=== PATIENT | female | born 1995 | race Caucasian/White ===

== ENCOUNTER → 2023-12-20 08:46 | Outpatient (REF) | payer BC, SELFPAY | LOC: HWRAD 08:46 | PROVIDERS: ATTENDING PHYSICIAN Nurse Practitioner Family | DX: E06.3 Autoimmune thyroiditis (principal) | CPT/HCPCS: 76536 ==

== ENCOUNTER 2025-06-14 01:09 | Day surgery (SDC) | payer BC, SELFPAY ==
[2025-06-13 21:02] VITALS: BMI 28.0
[2025-06-13 21:04] VITALS: BP 109/70
--- NOTE | 2025-06-13 21:49 | ED.GENMED ---
History of Present Illness
General
Chief Complaint: Abdominal Pain
Source: patient
Exam Limitations: none
Time Seen by Provider: 06/13/25 21:39
History of Present Illness
History of Present Illness:
30-year-old female otherwise healthy presents complaining of right lower abdominal pain getting worse since 1 PM this afternoon. There was no associated nausea vomiting or diarrhea. No fevers but does note some chills. Prior surgical history of
cholecystectomy. She was on Wegovy but stopped this about a month ago. Last menstrual cycle was 3-1/2 weeks ago. No prior history of kidney stones or ovarian cyst. If anything since waiting in the waiting her pain is slightly improved.
Past History
Past History
ED Past Medical History: Asthma
ED Past Surgical History: Other (Oral surgery)
Social History
Tobacco: Non-smoker
Phy Exam
Physical Exam
Physical Exam:
General: Well-appearing female no acute respiratory distress HEENT: Normocephalic atraumatic
Heart: Regular rate and rhythm lungs: Clear no wheeze
Abdomen is soft tender to the right lower quadrant no guarding no rebound nondistended
Extremities: No cyanosis or edema
Course
Orders/Labs/Results
Orders:
Orders
06/13/25 21:46
Test Result ONCE
06/13/25 21:47
CT Abd/pelvis W Iv Cont Urgent
Comment:
Reason For Exam: rlq pain
06/13/25 21:54
Complete Blood Count/With Diff Urgent
Comprehensive Metabolic Panel Urgent
HCG, Serum Qualitative Screen Urgent
Lipase Urgent
Urinalysis Reflex To Culture Urgent
Date Specimen was Collected: 06/13/25
Time Specimen was Collected: 21:51
06/13/25 22:58
Ketorolac [Toradol] 15 mg IV NOW STA
Abnormal Lab Results
06/13/25
21:54
WBC 14.5 H 10^3/uL
(4.8-10.8)
Hct 36.7 L %
(37.0-47.0)
MCHC 32.7 L g/dL
(33.0-37.0)
Abs Immat Gran (auto) 0.1 H 10^3/uL
(0-0.05)
Absolute Neuts (auto) 11.2 H 10^3/uL
(1.4-6.5)
Absolute Monos (auto) 0.9 H 10^3/uL
(0.1-0.6)
Neutrophils % 77.5 H %
(42.2-75.2)
Lymphocytes % 15.6 L %
(20.5-51.1)
Creatinine 0.5 L mg/dL
(0.6-1.0)
Glucose 112 H mg/dl
(70-99)
06/13/25 21:54
06/13/25 21:54
Vital Signs
Initial and Last Documented VS:
Initial Vital Signs
Temp Pulse Resp BP Pulse Ox
98.9 F 101 16 109/70 98
06/13/25 21:04 06/13/25 21:04 06/13/25 21:04 06/13/25 21:04 06/13/25 21:04
Last Documented Vital Signs
Temp Pulse Resp BP Pulse Ox
99.3 F 67 16 107/61 99
06/14/25 00:00 06/14/25 00:00 06/14/25 00:00 06/14/25 00:00 06/14/25 00:00
MDM/Problems Addressed
Differential Diagnosis Includes:
Right lower abdominal pain. Consider constipation versus appendicitis versus renal colic versus UTI versus ovarian related pathology
Check urine, test, labs and CT
*Pulse Oximetry
SaO2: 98
Oxygen Mode of Delivery: Room air
Patient hypoxic: no
*Critical Care Note
Total Time (30-74mins, 75-104mins- exclusive of procedures): Not Applicable
Update Note
Update Note:
This white blood cell count elevated at 14.5. CT consistent with acute appendicitis with an appendix measuring 11 mm without evidence of rupture or abscess. Discussed with general surgery who agreed to keep the patient on their service. House
doctor to admit Toradol was ordered for pain
ED Attending Note
-
Portions of this chart may have been created with voice recognition software.� Occasional wrong word or��sound alike� substitutions may have occurred due to the inherent limitations of voice recognition software.
Discharge Plan
Departure
Patient Disposition: Admit
Date of Disposition: 06/14/25
Time of Disposition: 00:13
Presentation/result/management discussed w/ accepting MD/DO: Nigel
Discharge Problem:
Acute appendicitis
Prescriptions:
No Action
kmjowxsi-gji-Gt-FA 1 mg Tablet
1 tab PO DAILY
ibuprofen 600 mg Tablet
600 mg PO Q6HPRN PRN (Reason: moderate pain/cramps) Qty: 0 0RF
acetaminophen 325 mg Tablet
650 mg PO Q4HPRN PRN (Reason: mild pain) Qty: 0 0RF
oxycodone 5 mg tablet
5 mg PO Q4H PRN (Reason: pain) Qty: 10 0RF
ondansetron 8 mg tablet,disintegrating
8 mg PO TID PRN (Reason: nausea and vomiting) Qty: 30 0RF
Referrals:
Rashida Dudley CRNP [Family Provider, Family Practice]
Interventions
Interventions:
*Risk Screen - Suicide Last Done: 06/13/25 21:04
*General Assessment Last Done: 06/13/25 21:04
*Neglect/Abuse Screening Last Done: 06/13/25 21:04
*ED- Fall Risk Assessment Last Done: 06/13/25 21:59
YD-Hezxoo-Upckflzyhq Assessment Last Done: 06/13/25 21:59
Discharge Date and Time
Print Language: INDIAN
[2025-06-13 22:00] VITALS: BP 114/78
[2025-06-13 22:10] LABS: Urine Character Clear (Clear)
[2025-06-13 22:12] LABS: Hematocrit 36.7 % (37.0-47.0); Hemoglobin 12.0 g/dL (12.0-16.0); Mean Corp Hgb Conc. 32.7 g/dL (33.0-37.0); Mean Corpuscular Volume 85.7 fL (81.0-99.0); Nucleated Red Blood Cells % 0 %; Platelet Count 240 10^3/uL (130-400); Red Cell Dist. Width 13.1 % (11.5-14.5)
[2025-06-13 22:24] LABS: HCG, Serum Qualitative Screen Negative
[2025-06-13 22:30] LABS: ALT (SGPT) 19 U/L (0-35); AST (SGOT) 21 U/L (14-36); Albumin 4.2 g/dl (3.5-5.0); Alkaline Phosphatase 55 U/L (38-126); Blood Urea Nitrogen 10 mg/dl (7-17); Calcium 9.3 mg/dl (8.4-10.2); Carbon Dioxide 26 mmol/L (22-30); Chloride 103 mmol/L (98-107); Estimated Creatinine Clearance > 125 ml/min; Glucose 112 mg/dl (70-99); Lipase 85 U/L (23-300); Potassium 4.0 mmol/L (3.5-5.1); Sodium 135 mmol/L (135-145); Total Protein 7.4 g/dl (6.3-8.2); eGFR > 60.00
[2025-06-13] MEDS: TORADOL 15 MG IV (23:00)
[2025-06-14] VITALS (15 sets, daily range): BP systolic 91–107; BP diastolic 45–61
[2025-06-14] MEDS: NSS 1000 IV ×2 (02:13→14:40)
--- NOTE | 2025-06-14 02:15 | PTCARENOTE ---
Patient arrived from ED to [facility], AAOX3, walked on own into new room. VSS, no c/o N/V at this time. Pt states abdominal pain is minimal at this time and tolerable. IVF per order. Pt cleansed with CHG wipes in preparation for surgery later this
morning. All questions answered, assessment on going.
--- NOTE | 2025-06-14 02:56 | HPS.HSE ---
Addendum entered and electronically signed by Favio Gautam MD 06/14/25 08:20:
I saw and examined the patient.
The PERSONNEL COUNSELOR's note was reviewed and I agree with the note.
Comment:
Seen recently on floor.
History, vitals, labs, imaging reviewed. Patient seen and examined.
30 yo F with acute nonperforated appendicitis based on history, exam, and imaging. Recommended OR for lap appy. Risks/benefits covered and she agreed to proceed. Anticipate discharge afterwards.
Original Note:
Family Physician
-
Family Physician: LENI Mensah
Chief Complaint
-
abd pain since 1pm
History of Present Illness
30-year-old female hx of cholecystectomy 2022, hypothyroid, asthma presents complaining of right lower abdominal pain getting worse since 1 PM this afternoon. There was no associated nausea vomiting or diarrhea. No fevers but does note some
chills. Prior surgical history of cholecystectomy [address] Lara. She was on Wegovy but stopped this about a month ago. Last menstrual cycle was 3-1/2 weeks ago. No prior history of kidney stones or ovarian cyst.
ED treatment:
Labs unremarkable except wbc 14.5
CT consistent with acute appendicitis with an appendix measuring 11 mm without evidence of rupture or abscess
pain controlled with toradol
Medical History
Past Medical History
Past Medical History: Reports Asthma and Hypothyroidism (hashimotos)
Past Surgical History: Reports Cholecystectomy (2022)
Social History
Tobacco: Non-smoker
Alcohol: None
Drug: None
Personal:
Living: With Family
Family History
Family History: Cancer (maternal grandmother breast ca)
Allergies / Home Medications
Allergies reflects when Allergies were last updated in [facility].
Home Medications with original date entered in [facility]
Allergy/Medication List:
Allergies
Allergy/AdvReac Type Severity Reaction Status Date / Time
pineapple Allergy Mild mouth Verified 06/14/25 02:53
burning
amoxicillin trihydrate (From Allergy childhood Verified 06/14/25 02:53
Amoxil)
doxycycline AdvReac Mild Nausea Verified 06/14/25 02:52
Home Medications
fluticasone furoate 100 mcg-vilanterol 25 mcg/dose inhalation powder (Breo Ellipta) 1 inh inhalation DAILY 06/14/25
levothyroxine 25 mcg tablet 25 mcg PO DAILY 06/14/25
Review of Systems
-
History Source: Patient
A 12 point ROS was completed and negative except as noted: Yes
Constitutional: Reports Chills
EENT: Reports No Symptoms
Respiratory: Reports No Symptoms
Cardiac: Reports No Symptoms
Abdomen/GI: Reports Abdominal Pain (RLQ starting 1pm 06/13/25); Denies Nausea or Vomiting
: Reports No Symptoms
Musculoskeletal: Reports No Symptoms
Skin: Reports No Symptoms
Neurological: Reports No Symptoms
Endocrine: Reports No Symptoms
Hematologic/Lymphatic: Reports No Symptoms
Psych: Reports No Symptoms
Physical Exam
Vital Signs
Vital Signs
Temp Pulse Resp BP Pulse Ox
99.3 F 67 16 107/61 99
06/14/25 00:00 06/14/25 00:00 06/14/25 00:00 06/14/25 00:00 06/14/25 00:00
Physical Exam
General: Well Nourished, No Apparent Distress, Comfortable and Conversant
HEENT: NormoCephalic, Anicteric, Moist mucous membranes, Atraumatic and Good Dentition
Respiratory: Clear and Non Labored Respirations
Cardiac: S1/S2 and Regular Rhythm
Breast: Deferred by me
GI: Soft, Non Distended, Normal Bowel Sounds and Tender (RLQ tender with guarding. no peritoneal signs); No Non Tender
Rectal: Deferred by Provider
Skin: Warm and Dry
Neuro: Alert, Oriented, AO x 3 and No Motor Deficits
Hematologic/Lymphatic: No Lymphadenopathy
Psych: Calm
Laboratory Results
-
Laboratory Results
Total Bilirubin 0.3 mg/dl (0.2-1.3) 06/13/25 21:54
AST 21 U/L (14-36) 06/13/25 21:54
ALT 19 U/L (0-35) 06/13/25 21:54
Alkaline Phosphatase 55 U/L (38-126) 06/13/25 21:54
Lipase 85 U/L (23-300) 06/13/25 21:54
Data Reviewed
-
CT Scan: Report Reviewed by me and Discussed with Physician
Medical Tests (Nuc Med, Echo, EKG etc): Report Reviewed by me and Discussed with Physician
Impression/Plan
-
IMPRESSION:
acute appendicitis uncomplicated
PLAN:
Admit to service of DR gautam
med surg obs
# acute appendicitis uncomplicated.
-CT consistent with acute appendicitis with an appendix measuring 11 mm without evidence of rupture or abscess
-WBC 14.5 --> repeat in am
-allergy to amoxicillin- unsure rx as it was in childhood. tolerated clindamycin with cholecystomy- will order clinda iv
-NPO x meds
#hypothyroid
-cont levothyroxine
#asthma
-cont BREO or equivilant
DVT proph-scd for now
Full code
[2025-06-14] MEDS: CLEOCIN 50 IV (04:01)
[2025-06-14] MEDS: SYNTHROID 25 MCG PO (06:26)
[2025-06-14 06:34] LABS: Hematocrit 33.0 % (37.0-47.0); Hemoglobin 10.7 g/dL (12.0-16.0); Mean Corp Hgb Conc. 32.4 g/dL (33.0-37.0); Mean Corpuscular Volume 86.6 fL (81.0-99.0); Nucleated Red Blood Cells % 0 %; Platelet Count 200 10^3/uL (130-400); Red Cell Dist. Width 13.1 % (11.5-14.5)
[2025-06-14 07:58] LABS: ALT (SGPT) 15 U/L (0-35); AST (SGOT) 20 U/L (14-36); Albumin 3.5 g/dl (3.5-5.0); Alkaline Phosphatase 50 U/L (38-126); Blood Urea Nitrogen 10 mg/dl (7-17); Calcium 8.6 mg/dl (8.4-10.2); Carbon Dioxide 26 mmol/L (22-30); Chloride 107 mmol/L (98-107); Estimated Creatinine Clearance > 125 ml/min; Glucose 95 mg/dl (70-99); Potassium 4.2 mmol/L (3.5-5.1); Sodium 137 mmol/L (135-145); Total Protein 6.4 g/dl (6.3-8.2); eGFR > 60.00
[2025-06-14] MEDS: SYMBICORT 80/4.5 MCG INHALER INH (08:08)
--- NOTE | 2025-06-14 09:38 | W.IMMPOSTOP ---
Surgical Immed Post Op Note
-
Primary Surgeon: Amari Manning MD
Assisting Surgeon: Cristine Valladares NP
Pre-op Diagnosis: acute appendicitis
Post-op Diagnosis: same
Procedure Performed: laparoscopic appendectomy
Anesthesia Type: general plus local
Specimen / Cultures: appendix
Estimated Blood Loss: 10 cc
Complications: no immediate
Operative Findings: inflamed non-perforated appendix
Will send back to med surg.
updated.
Potential for discharge later today.
[2025-06-14] MEDS: FLAGYL 500 MG 100 IV (10:29)
[2025-06-14] MEDS: LEVAQUIN 100 IV (10:30)
[2025-06-14] MEDS: ZOFRAN 4 MG IV (10:33)
--- NOTE | 2025-06-14 11:16 | CM ---
CM following re: discharge planning.
Reviewed pt's chart, met with pt and pt's at bedside.
Pt is a 30 year old female, admitted with primary dx of acute appendicitis, POD#0 laparoscopic appendectomy.
Pt reports she lives with and 2 year daughter 2SH, 2 steps to enter. 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
Per Surgery, pt potential for discharge later today.
PCP: Rashida Dudley
Pharmacy: [facility] [place]
D/C plan: home no needs. to transport.
--- NOTE | 2025-06-14 11:43 | PTCARENOTE ---
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 NSS 80 mls via 20 RAC. pt is very nauseous and did vomit ~40mls bile. VSS, abdomen comfortable, walked to bathroom to void. Zofran administered, cool towels given. At this time on recheck she
is asleep. nurse did notify via TT RAY Valladares.
[2025-06-14] MEDS: COMPAZINE 5 MG IV (14:39)
[2025-06-14] MEDS: TORADOL 15 MG IV (17:38)
[2025-06-14] MEDS: SYMBICORT 80/4.5 MCG INHALER 2 PUFF INH (19:21)
[2025-06-15] MEDS: NSS 1000 IV (02:15)
[2025-06-15 03:21] VITALS: BP 96/53
[2025-06-15] MEDS: SYNTHROID 25 MCG PO (06:12)
[2025-06-15 07:20] VITALS: BP 108/62
[2025-06-15] MEDS: SYMBICORT 80/4.5 MCG INHALER 2 PUFF INH (07:42)
--- NOTE | 2025-06-15 10:15 | W.PN.CRS1 ---
Today's Communication / Plan
-
discharge
Assessment/Plan
-
POD#1 laparoscopic appendectomy
no labs today
vitals normal
-Continue regular diet
-Out of bed as tolerated
-Will continue abx for 24 hours
-No plans for any further surgery
-OR pathology pending
-TEDS/SCDS for DVT prophylaxis
-Okay for dc today. All discharge instructions discussed with patient including medications, activity levels, and follow up. All questions addressed.
Subjective Data
Procedure
06/14/2025- laparoscopic appendectomy
Subjective Data
Date of Service: June 15, 2025
Patient states she feels well. She denies nausea or vomiting. Her pain is controlled. She would like to go home.
Objective Data
-
Vital Signs
Temp Pulse Resp BP Pulse Ox
98.8 F 81 14 108/62 100
06/15/25 07:20 06/15/25 07:45 06/15/25 07:45 06/15/25 07:20 06/15/25 09:27
Intake & Output
06/14/25 06/15/25 06/16/25
06:59 06:59 06:59
Intake Total 2099 / 2099
Output Total 40 / 40
Balance 2059 / 2059
Intake:
Oral fluids 960 / 960
IV fluids (Total) 1140 / 1140
normosol 100 / 100
Output:
Emesis 40 / 40
Other:
Number of approximated MODERATE 2
amounts of urine
Lab Results
06/14/25 06:12
06/14/25 06:12
Physical Exam
-
General: No Acute Distress and AOx3
Abdomen: Soft, Non Distended and Non Tender
Skin: Warm and Dry
Incision: Clear, Dry, Intact
[2025-06-15 11:15] VITALS: BP 108/70
== END 2025-06-15 12:35 | disposition home or self-care (01) ==
LOC: PACU 01:09
PROVIDERS: Nurse Practitioner Family; Physician Assistant; ATTENDING PHYSICIAN Surgery; EMERGENCY PHYSICIAN Emergency Medicine; FAMILY PHYSICIAN Nurse Practitioner Family
DX: K35.80 Unspecified acute appendicitis (principal)
CPT/HCPCS: 44970; 74177; 80053; 81003; 83690; 84703; 85025; 88304; 94640; 96374; 99285; G0378; Q9967